=== PATIENT | male | born 1970 | race African-American/Black ===

== ENCOUNTER 2024-02-14 17:18 | Emergency (ER) | payer BC, OTHER ==
[~2024-02-14] VITALS: Ht 182.9 cm; Wt 86.2 kg
[2024-02-14 17:24] VITALS: BP_SYST 114; PULSE 100; RESP 17; TEMP 98.4; O2SAT 98
[2024-02-14] MEDS ORDERED: NAPR-1172 PO (19:49)
[2024-02-14] MEDS: KETOROLAC TROMETHAMINE 60 MG/2 ML VIAL IM ONE (20:02)
[2024-02-14 20:07] VITALS: BP_SYST 114; PULSE 100; RESP 17; TEMP 98.4; O2SAT 98
== END 2024-02-14 20:07 | disposition home or self-care (01) ==
LOC: SED 17:18
DX: S42.021A Displaced fracture of shaft of right clavicle, initial encounter for closed fracture (principal); Z98.890 Other specified postprocedural states; V22.99XA Unspecified rider of other motorcycle injured in collision with two- or three-wheeled motor vehicle in traffic accident, initial encounter; Y93.89 Activity, other specified; Y92.89 Other specified places as the place of occurrence of the external cause; Y99.8 Other external cause status
CPT/HCPCS: 99283; 73030; 96372; J1885